=== PATIENT | male | born 1970 | race Caucasian/White ===

== ENCOUNTER 2016-12-16 01:25 | Emergency (ER) | payer OTHER ==
[~2016-12-16] VITALS: Ht 170.2 cm; Wt 108.9 kg
[~2016-12-16 01:25] MED LIST: CHANTIX1 TAB PO; NORCO 10/325 MG1 TAB PO; PREDNISONE1 MG PO; WELLBUTRIN XL300 MG PO; ZITHROMAX200 MG/5 M PO
--- NOTE | 2016-12-16 01:32 | NUR ---
46Y M BIB SELF C/O RIGHT FLANK PAIN X 3 HOURS AGO THAT DOESNT RADIATE ANYWHERE ELSE ON THE BODY . PT STATES HE HAS A HX OF KIDENY STONES BUT NEVER HAVE HAD ANY REMOVED, PT STATES HE THINKS HE JUST URINATES THEM OUT. PT DENIES N/V/D; SKIN IS PINK/WARM/DRY; AAOX4 WITH EVEN AND STEADY GAIT; LUNGS CLEAR BL; HR EVEN AND REGULAR; PT DENIES ANY FEVER, CP, SOB, OR COUGH AT THIS TIME; PATIENT STATES PAIN OF 9/10 AT THIS TIME; VSS; PATIENT POSITIONED FOR COMFORT; HOB ELEVATED; BEDRAILS UP X2; BED DOWN. ER MD MADE AWARE OF PT STATUS.
--- NOTE | 2016-12-16 01:33 | NUR ---
Dr. Muñoz evaluating patient at triage.
[2016-12-16] MEDS ORDERED: NACL 0.9% 500 ML IV SCH (01:34)
[2016-12-16 01:35] VITALS: BP 121/82
[2016-12-16] MEDS ORDERED: ONDANSETRON 4 MG/2 ML VIAL IVP ONE (01:35)
[2016-12-16] MEDS ORDERED: MORPHINE SULFATE 10 MG/ML SYR IVP ONE (01:35)
--- NOTE | 2016-12-16 01:42 | NUR ---
PT TAKEN TO BED 3
--- NOTE | 2016-12-16 02:02 | NUR ---
PT REFUSED OXYGEN. DR. ENGLE AWARE. O2 SAT 96-98%. NO SIGNS OF DISTRESS/ NO SOB NOTED. Addendum: 12/16/16 at 0224 by BRE PT STATED, "I DOES NOT NEED THAT."
--- NOTE | 2016-12-16 02:06 | NUR ---
PT TAKEN TO CT
--- NOTE | 2016-12-16 02:19 | NUR ---
PT BACK FROM CT
--- NOTE | 2016-12-16 03:03 | NUR ---
PT STILL COMPLAINT OF RIGHT FLANK PAIN , PAIN SCALE OF 8/10. ERMD AWARE. VSS.
[2016-12-16] MEDS ORDERED: HYDROcodone/APAP 10/325 MG 1 TAB TAB PO PRN (03:05)
[2016-12-16 03:30] VITALS: BP 107/57
--- NOTE | 2016-12-16 03:30 | NUR ---
IV removed, catheter intact and site benign. Applied folded 4x4 gauze and tape to stop bleeding.
--- NOTE | 2016-12-16 03:31 | NUR ---
VSS, NO DISTRESS NOTED.
--- NOTE | 2016-12-16 03:32 | NUR ---
Patient discharged with v/s stable. Written and verbal after care instructions given and explained. Patient alert, oriented and verbalized understanding of instructions. Ambulatory with steady gait. All questions addressed prior to discharge. ID band removed. Patient advised to follow up with PMD. Rx of NORCO 5MG-325MG TAB 1 TO 2 TABS EVERY 4 HOURS BY MOUTH, ZOFRAN 4MG TAB 1 TO 2 TABS 3 TIMES A DAY NEEDED FOR NAUSEA given. Patient educated on indication of medication including possible reaction and side effects. Opportunity to ask questions provided and answered.
== END 2016-12-16 03:32 | disposition home or self-care (01) ==
LOC: MED 01:25
DX: N23 Unspecified renal colic (principal); N20.0 Calculus of kidney; I10 Essential (primary) hypertension; Z79.899 Other long term (current) drug therapy
CPT/HCPCS: 74176; 81001; 96361; 96374; 96375; 99285; J2270; J2405; J7030

== ENCOUNTER 2017-03-15 13:58 | Emergency (ER) | payer OTHER ==
[~2017-03-15] VITALS: Ht 170.2 cm; Wt 86.2 kg
[2017-03-15 14:28] VITALS: BP 147/70
--- NOTE | 2017-03-15 14:56 | NUR ---
Patient ambulated to XRAY with tech.
--- NOTE | 2017-03-15 15:06 | NUR ---
Patient ambulated back to the lobby from XRAY.
--- NOTE | 2017-03-15 17:46 | NUR ---
Patient tobed 06.
--- NOTE | 2017-03-15 17:52 | NUR ---
46M BIB SELF C/O RT CHRONIC RT KNEE PAIN D/T TORN MINISCUS, ACHING, RADIATES TO RT CALF, X SEVERAL MONTHS, BUT PAIN INCREASED TO 10/10 X LAST NIGHT; NO SWELLING OR DEFORMITY TO RT KNEE AT THIS TIME; RT PEDAL PULSE PALPABLE, RT CAP REFILL < 2 SECONDS, NO LOSS OF SENSATION TO RT LEG AT THIS TIME; PT C/O PRODUCTIVE COUGH W/ WHITE PHLEGM X 2-3 DAYS; STATES "I SMOKE"; BL LUNG SOUNDS CLEAR, RR EVEN/UNLABORED AT THIS TIME; PT DENIES FEVER OR CHEST PAIN AT THIS TIME; PT DENIES N/V/D AT THIS TIME; PT RESTING IN BED W/ HOB ELEVATED AND IN LOWEST POSITION; POSITONED FOR COMFORT; ER MD MADE AWARE OF STATUS. WILL CONTINUE TO MONITOR.
[2017-03-15] MEDS ORDERED: IBUPROFEN 800 MG TAB PO ONE (18:25)
[2017-03-15] MEDS ORDERED: ALBUTEROL SULFATE/IPRATROPIU 3 ML SOL IH ONE (18:25)
[2017-03-15] MEDS ORDERED: HYDROcodone/APAP 5/325 MG 1 TAB TAB PO ONE (19:25)
--- NOTE | 2017-03-15 19:28 | NUR ---
REPORT GIVEN TO JOVANNY KELLEY AND NELLI RIZZO; TRANSFER OF CARE AT THIS TIME.
[2017-03-15 19:50] VITALS: BP 128/75
--- NOTE | 2017-03-15 19:50 | NUR ---
Patient discharged with v/s stable. Written and verbal after care instructions given and explained. Patient alert, oriented and verbalized understanding of instructions. Ambulatory with steady gait. All questions addressed prior to discharge. ID band removed. Patient advised to follow up with PMD. Rx of NORCO 5MG-325MG PO, IBUPROFEN 800MG PO given. Patient educated on indication of medication including possible reaction and side effects. Opportunity to ask questions provided and answered.
== END 2017-03-15 19:50 | disposition home or self-care (01) ==
LOC: MED 13:58
DX: R07.89 Other chest pain (principal); R06.02 Shortness of breath; M25.561 Pain in right knee; E11.9 Type 2 diabetes mellitus without complications; I10 Essential (primary) hypertension; F17.210 Nicotine dependence, cigarettes, uncomplicated; F10.99 Alcohol use, unspecified with unspecified alcohol-induced disorder
CPT/HCPCS: 36415; 71010; 80053; 81001; 83690; 84484; 85025; 94640; 99285; J7620

== ENCOUNTER 2017-04-16 09:02 | Emergency (ER) | payer OTHER ==
[~2017-04-16] VITALS: Ht 170.2 cm; Wt 95.3 kg
[~2017-04-16 09:02] MED LIST changes: +AZIT200P PO; +BUPR300T70 PO; -CHANTIX1 TAB PO; +HYDR-4452 PO; -NORCO 10/325 MG1 TAB PO; +PRED1TAB2 PO; -PREDNISONE1 MG PO; +VARE1TAB2 PO; -WELLBUTRIN XL300 MG PO; -ZITHROMAX200 MG/5 M PO
[2017-04-16 09:16] VITALS: BP 152/89
--- NOTE | 2017-04-16 09:21 | NUR ---
PATIENT AMBULATED TO BED 6 AT THIS TIME.
--- NOTE | 2017-04-16 09:26 | NUR ---
PT PRESENTS TO ER W/C/O COUGH X2 DAYS. HX DM, HTN. PT ADMITS TO SMOKING 1+PACKS OF CIGARETTES PER DAY.PT STATES PAIN IS AGGRAVATED BY COUGHING ;PAIN SCALE OF 6/10. DENIES N/V/D; SKIN IS PINK/WARM/DRY;W/ SCAR ON RT FOREARM; AAOX4 WITH EVEN AND STEADY GAIT; PATIENT POSITIONED FOR COMFORT; HOB ELEVATED; BEDRAILS UP X2; BED DOWN. ER MD WILL BE NOTIFIED.
--- NOTE | 2017-04-16 09:28 | NUR ---
X RAY AT BEDSIDE.
[2017-04-16] MEDS ORDERED: ALBUTEROL SULFATE/IPRATROPIU 3 ML SOL IH ONE (09:40)
--- NOTE | 2017-04-16 09:55 | NUR ---
RT AT BEDSIDE.
--- NOTE | 2017-04-16 10:09 | NUR ---
PT RESTING ON BED;NO ACUTE DISTRESS NOTED;WILL CONTINUE TO MONITOR PT.
--- NOTE | 2017-04-16 10:10 | NUR ---
DR BAUTISTA AT BEDSIDE.
--- NOTE | 2017-04-16 10:22 | NUR ---
Patient discharged with v/s stable. Written and verbal after care instructions given and explained. Patient alert, oriented and verbalized understanding of instructions. Ambulatory with steady gait. All questions addressed prior to discharge. ID band removed. Patient advised to follow up with PMD. Rx of TRAMADOL, ALBUTEROL AND DEXTROMETHORPHAN given. Patient educated on indication of medication including possible reaction and side effects. Opportunity to ask questions provided and answered.
[2017-04-16 10:23] VITALS: BP 152/89
== END 2017-04-16 10:22 | disposition home or self-care (01) ==
LOC: MED 09:02
DX: J20.9 Acute bronchitis, unspecified (principal); E11.9 Type 2 diabetes mellitus without complications; I10 Essential (primary) hypertension; Z71.6 Tobacco abuse counseling
CPT/HCPCS: 71010; 94640; 99283; J7620; Q0092

== ENCOUNTER 2019-06-27 14:50 | Emergency (ER) | payer OTHER ==
[~2019-06-27] VITALS: Ht 170.2 cm; Wt 113.4 kg
[~2019-06-27 14:50] MED LIST changes: +ACET-787 PO; -HYDR-4452 PO
[2019-06-27 14:55] VITALS: BP 158/98
--- NOTE | 2019-06-27 14:55 | NUR ---
PT TAKEN TO BED 8.
--- NOTE | 2019-06-27 15:09 | NUR ---
DR BAUTISTA AT BEDSIDE FOR MSE
[2019-06-27] MEDS ORDERED: KETOROLAC 60 MG/2 ML VIAL IM ONE (15:15)
--- NOTE | 2019-06-27 15:20 | NUR ---
C/O R KNEE PAIN RADIATING TO R CALF, 06/05 & ACHING X1 DAY. PT REPORTS CARRYING TILE YESTERDAY, THEN HE TRIPPED OVER A CABLE AND FELL, LANDING PRIMARILY ON HIS R KNEE. PT STATES HE HAS CHRONIC R KNEE PAIN AND THIS FALL EXACERBATED THE PAIN. PT DENIES INJURY TO OTHER EXTREMITY. MILD SWELLING NOTED TO R KNEE, PT IS AMBULATORY BUT HAS PAIN WHILE WALKING. DENIES NUMBNESS/TINGLING. PT SITTING IN CHAIR AT BEDSIDE.
[2019-06-27 15:56] VITALS: BP 158/98
--- NOTE | 2019-06-27 15:56 | NUR ---
Patient discharged with v/s stable. Written and verbal after care instructions given and explained. Patient alert, oriented and verbalized understanding of instructions. Ambulatory with steady gait. All questions addressed prior to discharge. ID band removed. Patient advised to follow up with PMD. Rx of TRAMADOL AND MOTRIN given. Patient educated on indication of medication including possible reaction and side effects. Opportunity to ask questions provided and answered.
== END 2019-06-27 15:56 | disposition home or self-care (01) ==
LOC: MED 14:50
DX: S83.91XA Sprain of unspecified site of right knee, initial encounter (principal); E11.9 Type 2 diabetes mellitus without complications; I10 Essential (primary) hypertension; Z79.899 Other long term (current) drug therapy; W18.09XA Striking against other object with subsequent fall, initial encounter; Y93.89 Activity, other specified; Y92.89 Other specified places as the place of occurrence of the external cause; Y99.8 Other external cause status
CPT/HCPCS: 29505; 73562; 82948; 96372; 99284; J1885; Q0092

== ENCOUNTER 2019-07-07 12:59 | Emergency (ER) | payer OTHER ==
[~2019-07-07] VITALS: Ht 170.2 cm; Wt 113.4 kg
[2019-07-07 13:24] VITALS: BP 140/93
--- NOTE | 2019-07-07 14:45 | NUR ---
WHEELCHAIRED PATIENT TO ER CHAIR B
--- NOTE | 2019-07-07 14:51 | NUR ---
48/M PRESENTS TO ED, C/O R KNEE PAIN, X2 WEEKS. R KNEE WITH NO OBVIOUS DEFORMITY, SWELLING OR BRUISING, +CIRCULATION DISTALLY, DECREASED ROM DUE TO PAIN. PT AWAKE AND ALERT, SKIN NORMAL WARM AND DRY, RR EVEN AND UNLABORED. HX CHRONIC R KNEE PAIN, DM RX METFORMIN; RX TRAMADOL AND IBUPROFEN WITHOUT RELIEF
[2019-07-07] MEDS ORDERED: KETOROLAC 60 MG/2 ML VIAL IM ONE (15:12)
[2019-07-07] MEDS ORDERED: KETOROLAC 60 MG/2 ML VIAL IM SCH (15:15)
--- NOTE | 2019-07-07 15:17 | NUR ---
PLACED MARJAN WRAP ON PATIENT'S RIGHT KNEE. SIZED CRUTCHES TO PATIENT
--- NOTE | 2019-07-07 15:24 | NUR ---
GAVE CRUTCHES TO PATIENT AND PATIENT DEMONSTRATED PROPER USE OF CRUTCHES
[2019-07-07 15:30] VITALS: BP 145/88
== END 2019-07-07 15:30 | disposition home or self-care (01) ==
LOC: MED 12:59
DX: M25.561 Pain in right knee (principal); E11.9 Type 2 diabetes mellitus without complications; I10 Essential (primary) hypertension; Z79.2 Long term (current) use of antibiotics; Z79.899 Other long term (current) drug therapy; Z79.891 Long term (current) use of opiate analgesic
CPT/HCPCS: 73562; 96372; 99283; J1885

== ENCOUNTER 2019-08-11 11:14 | Emergency (ER) | payer OTHER ==
[~2019-08-11] VITALS: Ht 170.2 cm; Wt 108.9 kg
[2019-08-11 11:23] VITALS: BP 139/91
[2019-08-11] MEDS: SULFAMETH/TRIMETH DS 800/160MG 1 TAB PO ONE (12:06)
[2019-08-11 12:47] VITALS: BP 143/82
== END 2019-08-11 12:45 | disposition home or self-care (01) ==
LOC: MED 11:14
DX: L02.01 Cutaneous abscess of face (principal); J44.9 Chronic obstructive pulmonary disease, unspecified; E11.9 Type 2 diabetes mellitus without complications; I10 Essential (primary) hypertension; Z79.899 Other long term (current) drug therapy
CPT/HCPCS: 99283